=== PATIENT | female | born 1985 | race American Indian/Alaskan Native ===

== ENCOUNTER 2017-03-25 17:03 | Emergency (ER) | payer MEDICAID ==
[2017-03-25 18:07] LABS: Basophils % (Auto) 0.5 % (0.0-1.8); Eosinophils % (Auto) 0.4 % (0.0-4.3); Lymphocytes # (Auto) 1.6 K/mm3 (1.2-5.4); Lymphocytes % (Auto) 42.4 % (13.4-35.0); Mean Corpuscular HGB Conc 31 % (30-34); Mean Corpuscular Volume 75 fl (79-97); Monocytes # (Auto) 0.2 K/mm3 (0.0-0.8); Monocytes % (Auto) 6.1 % (0.0-7.3); Platelet Count 200 K/mm3 (140-440); Red Blood Count 5.29 M/mm3 (3.65-5.03); Red Cell Distribution Width 15.4 % (13.2-15.2)
[2017-03-25 18:09] LABS: Hemoglobin 12.2 gm/dl (10.1-14.3)
[2017-03-25 18:10] LABS: Hematocrit 39.8 % (30.3-42.9); Mean Corpuscular Hemoglobin 23 pg (28-32)
[2017-03-25 18:25] LABS: BUN/Creatinine Ratio 11; Blood Urea Nitrogen 8 mg/dL (7-17); Calcium 7.9 mg/dL (8.4-10.2); Hemolysis Index 0
--- NOTE | 2017-03-25 18:29 | XRay Report ---
FINAL REPORT EXAM: XR CHEST ROUTINE 2V HISTORY: shortness of breath TECHNIQUE: Two view chest PA and lateral PRIORS: None. FINDINGS: Cardiac and mediastinal contours are unremarkable. No focal pulmonary infiltrate is identified. No pleural fluid collection seen. Pulmonary vasculature is unremarkable. IMPRESSION: Negative two-view chest
[2017-03-25 22:06] LABS: HCG Qualitative,Urine Negative (Negative)
[2017-03-25 22:09] LABS: Bilirubin,Urine SM (Negative); Blood,Urine SM (Negative); Color,Urine Amber (Yellow); Nitrite,Urine NEG (Negative); Protein,Urine >500 mg/dL (Negative)
[2017-03-25 22:12] LABS: Ictotest,Urine Positive (Negative)
--- NOTE | 2017-03-25 23:29 | Emergency Department Report ---
Minor Respiratory - HPI Chief Complaint: Dyspnea/Respdistress Stated Complaint: COUGH, COLD, CONGESTION Time Seen by Provider: 03/25/17 20:55 Duration: 4 Days Pain Location: Throat, Nose, Chest Severity: moderate Minor Respiratory: Yes Rhinorrhea, Yes Sore Throat, Yes Able to Tolerate Fluids , Yes Cough, Yes Chest Pain, Yes Fever, No Ear Pain, No Sick Contacts, No Hemoptysis, No Shortness of Breath Other History: Patient c/o cough, chills, congestion, SOB, nausea, vomiting, and diarrhea x 4 days. History of pneumonia 6 weeks ago post delivery. She is coughing up green mucous and the cough is worse while lying down. She took nyquil and delsym with minimal improvement for 1 day. She has not been taking scheduled medicine because she was to weak and felt nauseous. ED Review of Systems ROS: Stated complaint: COUGH, COLD, CONGESTION Other details as noted in HPI Constitutional: see HPI, chills, fever, malaise ENT: throat pain, congestion. denies: ear pain, dental pain, hearing loss, epistaxis Respiratory: see HPI, cough. denies: orthopnea, shortness of breath, SOB with exertion, SOB at rest, stridor, wheezing Cardiovascular: as per HPI. denies: chest pain, palpitations, dyspnea on exertion, orthopnea, edema, syncope, paroxysmal nocturnal dyspnea Gastrointestinal: nausea, vomiting, diarrhea. denies: abdominal pain, constipation, hematemesis, melena, hematochezia Neurological: denies: headache, weakness, paresthesias ED Past Medical Hx - Past Medical History Hx Hypertension: Yes Additional medical history: hx pneumonia - Surgical History Additional Surgical History: 3 . breast reduction - Social History Smoking Status: Never Smoker Substance Use Type: None - Medications Home Medications: Home Medications Medication Instructions Recorded Confirmed Last Taken Type Albuterol Sulfate [Proair 90 mcg IH Q4-6H #1 aer.[email or web address] 03/26/17 Unknown Rx Respiclick] Brompheniramine/Pseudoephed/Dm 118 ml PO Q4-6H #120 syrup 03/26/17 Unknown Rx [Bromfed Dm Cough Syrup] Fluticasone [Flonase] 1 spray NS QDAY #1 bottle 03/26/17 Unknown Rx Minor Respiratory Exam - Exam General: Vital signs noted. No distress. Alert and acting appropriately. HEENT: Yes Pharyngeal Erythema, Yes Moist Mucous Membranes, Yes Rhinorrhea ( yellow), No Pharyngeal Exudates, No Conjuctival Injection, No Frontal Tenderness , No Maxillary Tenderness Ear: Neither TM Bulge, Neither TM Erythema, Neither EAC Pain, Neither EAC Discharge Neck: Yes Supple, No Adenopathy Lungs: Yes Good Air Exchange, Yes Cough, No Wheezes, No Ronchi, No Stridor, No Labored Respirations, No Retractions, No Use of Accessory Muscles, No Other Abnormal Lung Sounds Heart: Yes Regular, No Murmur Abdomen: Yes Normal Bowel Sounds, No Tenderness, No Peritoneal Signs Skin: No Rash, No Edema Neurologic: Alert and oriented, no deficits. Musculoskeletal: Unremarkable. ED Course Vital Signs 03/25/17 17:31 Temperature 97.4 F L Pulse Rate 100 H Respiratory 20 Rate Blood Pressure 166/124 O2 Sat by Pulse 97 Oximetry ED Medical Decision Making - Lab Data Result diagrams: 03/25/17 17:45 03/25/17 17:45 - Radiology Data Radiology results: image reviewed FINDINGS: Cardiac and mediastinal contours are unremarkable. No focal pulmonary infiltrate is identified. No pleural fluid collection seen. Pulmonary vasculature is unremarkable. IMPRESSION: Negative two-view chest Critical care attestation.: If time is entered above; I have spent that time in minutes in the direct care of this critically ill patient, excluding procedure time. ED Disposition Clinical Impression: URI (upper respiratory infection) Qualifiers: URI type: acute nasopharyngitis (common cold) Qualified Code(s): J00 - Acute nasopharyngitis [common cold] Hypertension Qualifiers: Hypertension type: essential hypertension Qualified Code(s): I10 - Essential ( primary) hypertension Disposition: DC-01 TO HOME OR SELFCARE Is pt being admited?: No Does the pt Need Aspirin: No Condition: Stable Instructions: Upper Respiratory Infection (ED), Cold Symptoms (ED), Hypertension (ED) Additional Instructions: Wash hands frequently. Increase fluid intake. Take medication as prescribed. Follow up with Primary Care provider. Prescriptions: Albuterol Sulfate [Proair Respiclick] 90 mcg IH Q4-6H #1 aer.pow.ba Brompheniramine/Pseudoephed/Dm [Bromfed Dm Cough Syrup] 118 ml PO Q4-6H #120 syrup Fluticasone [Flonase] 1 spray NS QDAY #1 bottle Referrals: KAITY JENKINS MD [Primary Care Provider] - 3-5 Days [facility] [Outside] - 3-5 Days [facility] [Outside] - 3-5 Days Time of Disposition: 00:49 Print Language: [id number]
[2017-03-26] MEDS ORDERED: CATAPRES ONE (00:48)
[2017-03-26 00:57] VITALS: BP 150/114
[2017-03-26] MEDS ORDERED: CATAPRES PO ONE (07:34)
== END 2017-03-26 02:04 | disposition home or self-care (01) ==
LOC: ED 17:03
DX: J00 Acute nasopharyngitis [common cold] (principal); I10 Essential (primary) hypertension
CPT/HCPCS: 36415; 71020; 80048; 81001; 81025; 82803; 85025; 87040; 87400; 93005; 93010